=== PATIENT | female | born 2000 | race Caucasian/White ===

== ENCOUNTER → 2021-02-13 02:33 | Outpatient (CLI) | payer BC, SELFPAY ==
[2021-02-13 17:58] LABS: SARS-CoV-2 RNA PCR Negative
== END ==
PROVIDERS: PCP Nurse Practitioner Adult Health; Visit Provider Nurse Practitioner Adult Health
DX: R09.81 Nasal congestion (principal); Z20.822 Contact with and (suspected) exposure to COVID-19
CPT/HCPCS: C9803; U0003; U0005

== ENCOUNTER 2021-03-04 10:33 | Emergency (ER) | payer BC, SELFPAY ==
--- NOTE | 2021-03-04 10:36 | ED.URI ---
HPI - URI/Sore Throat General Chief Complaint: Upper Respiratory Infection Stated Complaint: congestion Time Seen by Provider: 03/04/21 10:36 Source: patient and RN notes reviewed History of Present Illness HPI Narrative: Patient is a 20-year-old female who presents the urgent care with complaints of nasal congestion and rhinorrhea. Patient states that she was sick for approximately 4 weeks and was able to get into her PCP 2 weeks ago and was placed on a Z-Parish. Patient states that symptoms did resolve however returned on Thursday this past week. Patient denies of fever, nausea, vomiting. Denies of any cough or other upper respiratory complaints. Patient has been taking DayQuil and NyQuil for her symptoms. No other acute complaints. No acute distress noted. Patient aware of the plan of care. Some parts of this dictation were generated by voice recognition software and may contain typographical and/or grammatical inaccuracies. Related Data Allergies Allergy/AdvReac Type Severity Reaction Status Date / Time No Known Allergies Allergy Unverified 02/14/14 18:07 Review of Systems Review of Systems: CONSTITUTIONAL: Denies fever, chills, or sweats. EYES: Denies visual changes, redness, or discharge. ENT: Denies sore throat, or otalgia. Reports of nasal congestion/rhinorrhea CARDIOVASCULAR: Denies chest pain, palpitations, or edema. RESPIRATORY: Denies cough or dyspnea. GASTROINTESTINAL: Denies abdominal pain, nausea, vomiting, or diarrhea. GENITOURINARY: Denies dysuria or hematuria. SKIN: Denies rash or itching. MUSCULOSKELETAL: Denies back pain, joint pain, or myalgia. NEUROLOGIC: Denies headache, numbness, or weakness. All other systems reviewed are negative, except as documented in HPI. PMFSH Comments At the time of my signature, I reviewed and agree with the nursing past medical, surgical, social, and family history. There is no relevant family history pertinent to the patient complaint. Exam Narrative: GENERAL: This is a well-nourished, well-developed patient, in no apparent distress. HEAD: normocephalic, atraumatic. Frontal sinus tenderness EYES: PERRL. Sclera clear/white. Vision is grossly intact. EARS: External ears normal, auditory canals clear and without drainage, TMs normal without perforation. Hearing grossly intact. NOSE: External nose normal with no obvious nasal discharge, mild bilateral erythemic nares with clear to yellow rhinorrhea THROAT: Mucous membranes moist, posterior pharynx clear. Moderate postnasal drainage NECK: Neck supple CARDIOVASCULAR: Regular rate and rhythm without murmurs, gallops, or rubs. RESPIRATORY: Clear to auscultation. Breath sounds equal bilaterally. No wheezes, rales, or rhonchi. SKIN: warm, intact with no suspicious lesions or rash, good texture and turgor. NEURO: awake, alert, and oriented to person, place and time. There were no obvious focal neurologic abnormalities. EXTREMITIES: No clubbing, cyanosis, or edema. Course Vital Signs Vital signs: Vital Signs Temperature 97.6 F 03/04/21 10:41 Pulse Rate 106 H 03/04/21 10:41 Respiratory Rate 16 03/04/21 10:41 Blood Pressure 151/77 H 03/04/21 10:41 Pulse Oximetry 97 03/04/21 10:41 Temperature 97.6 F 03/04/21 10:41 Pulse Rate 106 H 03/04/21 10:41 Respiratory Rate 16 03/04/21 10:41 Blood Pressure 151/77 H 03/04/21 10:41 Pulse Oximetry 97 03/04/21 10:41 Reviewed-patient is informed that they may have pre-hypertension or hypertension based on a blood pressure reading in the department. I recommend the patient call the primary care provider listed on their discharge instructions or a physician of their choice this week to arrange follow-up for further evaluation of possible pre-hypertension or hypertension. MDM - URI/Sore Throat MDM Narrative Medical decision making narrative: Advised patient complete the steroid regimen as prescribed. Use Benadryl and Flonase prior to bedtime. Use a humidifier at nig
[2021-03-04 10:41] VITALS: BP 151/77; PULSE 106; RESP 16; TEMP 36.4; O2SAT 97
== END 2021-03-04 10:49 | disposition home or self-care (01) ==
PROVIDERS: Emergency Provider Nurse Practitioner Family; PCP Nurse Practitioner Adult Health
DX: J30.9 Allergic rhinitis, unspecified (principal); J32.9 Chronic sinusitis, unspecified
CPT/HCPCS: 99203; G0463

== ENCOUNTER 2022-02-03 09:26 | Emergency (ER) | payer BC, SELFPAY ==
--- NOTE | 2022-02-03 09:31 | ED.URI ---
HPI - URI/Sore Throat General Chief Complaint: Upper Respiratory Infection Stated Complaint: sore throat, nose bleed Time Seen by Provider: 02/03/22 09:31 Source: patient and RN notes reviewed History of Present Illness HPI Narrative: Patient is a 21-year-old female who presents to the Urgent Care with complaints of a sore throat for 6 days. Patient denies any fevers, nausea or vomiting. Patient is not taking anything recently [id number] for her symptoms. Denies any known ill exposures. No other acute complaints. No acute distress noted. Patient aware of plan of care. Some parts of this dictation were generated by voice recognition software and may contain typographical and/or grammatical inaccuracies. Related Data Home Medications Medication Instructions Recorded Confirmed cetirizine 10 mg tablet (Zyrtec) 10 mg PO DAILY 02/03/22 02/03/22 spironolactone 100 mg tablet 150 mg PO DAILY 02/03/22 02/03/22 Allergies Allergy/AdvReac Type Severity Reaction Status Date / Time No Known Allergies Allergy Unverified 02/03/22 09:55 Review of Systems Review of Systems: CONSTITUTIONAL: Denies fever, chills, or sweats. EYES: Denies visual changes, redness, or discharge. ENT: Reported nose bleeding sore throat CARDIOVASCULAR: Denies chest pain, palpitations, or edema. RESPIRATORY: Denies cough or dyspnea. GASTROINTESTINAL: Denies abdominal pain, nausea, vomiting, or diarrhea. GENITOURINARY: Denies dysuria or hematuria. SKIN: Denies rash or itching. MUSCULOSKELETAL: Denies back pain, joint pain, or myalgia. NEUROLOGIC: Denies headache, numbness, or weakness. All other systems reviewed are negative, except as documented in HPI. PMFSH Comments At the time of my signature, I reviewed and agree with the nursing past medical, surgical, social, and family history. There is no relevant family history pertinent to the patient complaint. Exam Narrative: GENERAL: This is a well-nourished, well-developed patient, in no apparent distress. HEAD: normocephalic, atraumatic. EYES: PERRL. Sclera clear/white. Vision is grossly intact. EARS: External ears normal, auditory canals clear and without drainage, TMs normal without perforation. Hearing grossly intact. NOSE: External nose normal with no obvious nasal discharge, nares without redness, no rhinorrhea. THROAT: Mucous membranes moist, posterior pharynx clear. NECK: Neck supple, non-tender without lymphadenopathy, masses or thyromegaly. CARDIOVASCULAR: Regular rate and rhythm without murmurs, gallops, or rubs. RESPIRATORY: Clear to auscultation. Breath sounds equal bilaterally. No wheezes, rales, or rhonchi. SKIN: warm, intact with no suspicious lesions or rash, good texture and turgor. NEURO: awake, alert, and oriented to person, place and time. There were no obvious focal neurologic abnormalities. EXTREMITIES: No clubbing, cyanosis, or edema. Course Course Level of Care: Express Care Visit Vital Signs Vital signs: Vital Signs Temperature 97.8 F 02/03/22 09:46 Pulse Rate 89 02/03/22 09:46 Respiratory Rate 16 02/03/22 09:46 Blood Pressure 132/68 02/03/22 09:46 Pulse Oximetry 100 02/03/22 09:46 Temperature 97.8 F 02/03/22 09:46 Pulse Rate 89 02/03/22 09:46 Respiratory Rate 16 02/03/22 09:46 Blood Pressure 132/68 02/03/22 09:46 Pulse Oximetry 100 02/03/22 09:46 Reviewed MDM - URI/Sore Throat MDM Narrative Medical decision making narrative: Reviewed lab results with the patient. She is aware her strep swab was negative. Educated patient on culture and we will call within 72 hours if culture is positive and antibiotics are necessary. Advised patient use Tylenol/ibuprofen as needed. Continue daily antihistamine. May use lozenges or Chloraseptic spray [id number] to help with sore throat. Follow-up with your PCP within 2-5 days or for worsening symptoms or failure to improve. Differential Diagnosis Differential diagnosis: Likely u
[2022-02-03 09:46] VITALS: BP 132/68; PULSE 89; RESP 16; TEMP 36.6; O2SAT 100
== END 2022-02-03 10:12 | disposition home or self-care (01) ==
PROVIDERS: Emergency Provider Nurse Practitioner Family; PCP Nurse Practitioner Adult Health
DX: J02.9 Acute pharyngitis, unspecified (principal)
CPT/HCPCS: 87081; 87880; 99213; G0463

== ENCOUNTER 2022-02-16 17:39 | Emergency (ER) | payer BC, SELFPAY ==
--- NOTE | ~2022-02-16 | XR_ITS ---
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 RESULT: Lines, tubes, and devices: None. Lungs and pleura: Clear. Cardiomediastinal silhouette: Stable. Other: No acute osseous or upper abdominal finding. IMPRESSION: No acute cardiopulmonary process. Reviewed, dictated and finalized at location K. T TEACHER
[2022-02-16 17:57] VITALS: BP 139/83; PULSE 109; RESP 16; TEMP 36.2; O2SAT 97
--- NOTE | 2022-02-16 18:42 | ED.GENADULT ---
HPI - General Adult General Chief complaint: Upper Respiratory Infection Stated complaint: fatigue, cough, headache Source: patient Mode of arrival: ambulatory Limitations: no limitations History of Present Illness HPI narrative: Patient presents for evaluation of sick symptoms. she had a mild cough yesterday put it worsened today. Reports associated body aches, headache, nausea, one episode of vomiting and shortness of breath. She denies any fever or diarrhea. Her roommate has similar symptoms. She also has a friend that developed sick symptoms 2 days ago. Her friend has not been evaluated by medical provider. Patient has had COVID in the past. She does not smoke cigarettes but does smoke marijuana. No leg swelling. Not on contraception. No personal history of DVT or PE. Related Data Home Medications Medication Instructions Recorded Confirmed cetirizine 10 mg tablet (Zyrtec) 10 mg PO DAILY 02/03/22 02/16/22 spironolactone 100 mg tablet 150 mg PO DAILY 02/03/22 02/16/22 Allergies Allergy/AdvReac Type Severity Reaction Status Date / Time No Known Allergies Allergy Verified 02/16/22 17:54 Review of Systems Review of Systems: CONSTITUTIONAL: Denies fever, chills, or sweats. EYES: Denies visual changes, redness, or discharge. ENT: Denies rhinorrhea, congestion, sore throat, or otalgia. CARDIOVASCULAR: Denies chest pain, palpitations, or edema. RESPIRATORY: Reports productive cough of yellow sputum with associated shortness of breath GASTROINTESTINAL: reports nausea and 1 episode of vomiting. Denies diarrhea. GENITOURINARY: Denies dysuria or hematuria. SKIN: Denies rash or itching. MUSCULOSKELETAL: Reports generalized body aches NEUROLOGIC: reports headache. Deniesnumbness, dizziness, or weakness. PSYCHIATRIC: Denies anxiety or depression. [facility] Past Medical History Medical History (Updated 02/16/22 @ 19:36 by Brad Durant, SHERMAN, LIV) No pertinent past medical history Surgical History Surgical History No pertinent past surgical history Family History Family History (Updated 02/16/22 @ 18:46 by SHERMAN Peres, LIV) Mother Family history non-contributory Social History Social History Alcohol intake: current Alcohol use details: social Substance use: never Substance use type: marijuana Living arrangements: with roommate(s) Gender identity (if verbalized by the patient): Female Spiritual care concerns: No Exam Narrative: GENERAL: appears acutely ill but nontoxic HEAD: Normocephalic, atraumatic. EYES: PERRLA and EOMI. ENT: Nares clear, no rhinorrhea or epistaxis. Mucous membranes moist. Oropharynx without tonsillar hypertrophy exudate or other lesions. Bilateral TMs pearly rodriguez nonbulging NECK: Supple. No adenopathy or masses. No carotid bruits or JVD CHEST: Clear to auscultation. No respiratory distress. No wheezes rales or rhonchi HEART: rate 102. Normal rhythm. No murmur heard. Normal peripheral pulses. ABDOMEN: Soft, nontender, nondistended, normal active bowel sounds. EXTREMITIES: Normal range of motion. No edema. SKIN: Warm, dry, no rash. NEURO: No focal deficits. Alert and oriented x3. PSYCH: Normal mood and affect. Course Course Emergency Course: This is a 21-year-old female who presented for evaluation of sick symptoms. COVID a and influenza were negative. Chest x-ray negative. Advised increase hydration and xlkt-[id number] agents for symptom management. I offered to provide her with an albuterol inhaler for shortness of breath but she states she really has 1 at home. Follow up with primary provider this coming week. Go to the ER for worsening symptoms. Patient in agreement with plan of care Level of Care: Express Care Visit Vital Signs Vital signs: Vital Signs Temperature 36.2 C L 02/16/22 17:57 Pulse Rate
[2022-02-16] MEDS: IBUPROFEN 400 MG TABLET 800 MG PO (18:52)
== END 2022-02-16 19:48 | disposition home or self-care (01) ==
PROVIDERS: Emergency Provider Nurse Practitioner; PCP Nurse Practitioner Adult Health
DX: B34.9 Viral infection, unspecified (principal); Z20.822 Contact with and (suspected) exposure to COVID-19; F12.90 Cannabis use, unspecified, uncomplicated; Z86.16 Personal history of COVID-19
CPT/HCPCS: 71046; 87426; 87804; 99213; A9270; C9803; G0463

== ENCOUNTER 2022-03-18 10:46 | Emergency (ER) | payer BC, SELFPAY ==
--- NOTE | 2022-03-18 10:49 | ED.URI ---
HPI - URI/Sore Throat General Chief Complaint: Upper Respiratory Infection Stated Complaint: cough, swollen lmph nodes Time Seen by Provider: 03/18/22 10:49 Source: patient, RN notes reviewed and old records reviewed Mode of arrival: ambulatory Limitations: no limitations History of Present Illness HPI Narrative: 21-year-old female presents to the [facility] with a sensation of something stuck in her throat. Denies fevers. Also reports an occasional cough. Denies fevers, chest pain, abdominal pain. Onset (ago): week(s) (1) Related Data Home Medications Medication Instructions Recorded Confirmed No Home Medications 03/18/22 03/18/22 Allergies Allergy/AdvReac Type Severity Reaction Status Date / Time No Known Allergies Allergy Verified 03/18/22 11:04 Review of Systems Review of Systems: All systems reviewed & are unremarkable except as noted in HPI and below Constitutional: Constitutional: Reports no additional constitutional complaints Eyes: Eyes: Reports no additional eye complaints ENT: Reports as per HPI and Reports sore throat Cardiovascular: Cardiovascular: Reports no additional cardiovascular complaints, Denies chest pain and Denies dyspnea Respiratory: Respiratory: Reports no additional respiratory complaints, Denies chest congestion, Denies cough and Denies dyspnea Gastrointestinal: Gastrointestinal: Reports no additional gastrointestinal complaints, Denies abdominal pain, Denies nausea and Denies vomiting Musculoskeletal: Musculoskeletal: Reports no additional musculoskeletal complaints Integumentary/Breasts: Skin/Breast: Reports system reviewed and no additional complaints, except as docu Neurologic: Reports system reviewed and no additional complaints, except as documented Psychiatric: Psychiatric: Reports no additional psychiatric complaints Allergic/Immunologic: Allergic/Immunologic: Reports no additional allergic/immunologic complaints [facility] Past Medical History Medical History (Updated 03/18/22 @ 11:23 by Mackenzie Pierce APRN) No pertinent past medical history Surgical History Surgical History (Updated 03/18/22 @ 11:13 by Mackenzie Pierce APRN) History of tonsillectomy No pertinent past surgical history Family History Family History Mother Family history non-contributory Social History Social History Alcohol intake: current Alcohol use details: social Substance use: never Substance use type: marijuana Gender identity (if verbalized by the patient): Female Spiritual care concerns: No Comments At the time of my signature, I reviewed and agree with the nursing past medical, surgical, social, and family history. There is no relevant family history pertinent to the patient complaint. Exam Const: General: cooperative, healthy appearing, comfortable, no acute distress, well developed, alert and well nourished Nutritional Appearance: well nourished and obese Orientation/consciousness: patient oriented x3 Limitations: no limitations HENMT: Head: normal to inspection Ears: hearing grossly normal bilaterally and external ears normal Face/Nose/Sinus: Normal external nose present, Normal nares present, Normal nasal mucous membranes and turbinates present and normal facial exam Face and sinus: normal facial exam Mouth: Yes Normal oral and palatal mucosa present, Yes lip normal and Yes moist mucous membranes Throat: posterior oropharynx normal, uvula midline and tonsils absent Other: Posterior pharynx, no erythema, swelling, exudate or foreign bodies noted. No muffled voice Eyes: General: appearance normal, both eyes and all related structures Alignment and Position: alignment normal Periorbital: periorbital findings normal Conjunctivae: conjunctivae normal Pupils: Equal, round and reactive pupils present EOM: EOMs intact bilaterally Neck: Neck: normal v
[2022-03-18 10:59] VITALS: BP 133/75; PULSE 102; RESP 16; TEMP 37.1; O2SAT 98
== END 2022-03-18 11:19 | disposition home or self-care (01) ==
PROVIDERS: Emergency Provider Nurse Practitioner
DX: J02.9 Acute pharyngitis, unspecified (principal)
CPT/HCPCS: 99211; G0463